=== PATIENT | male | born 1995 | race Caucasian/White ===

== ENCOUNTER 2021-10-09 22:15 | Emergency (ER) | payer BC ==
[2021-10-09] MEDS ORDERED: Lidocaine 2% 20 ML MDV INFILT ONE (22:16)
== END 2021-10-09 23:10 | disposition home or self-care (01) ==
LOC: FB.ED 22:15
DX: S91.312A Laceration without foreign body, left foot, initial encounter (principal); W26.8XXA Contact with other sharp object(s), not elsewhere classified, initial encounter
CPT/HCPCS: 12001; 99282; 99282-25